=== PATIENT | male | born 1935 | race Caucasian/White ===

== ENCOUNTER → 2016-03-25 | Outpatient (CLI) | payer MEDICARE ==
--- NOTE | ~2016-03-25 | PR ---
[place], [place] PROGRESS NOTE NAME: JESSICA EASON [facility] #: [id number] UNIT #: [id number] ROOM: DOCTOR: GARY TOVAR DPM BIRTHDATE: [birth year] DOS: 03/25/2016 SUBJECTIVE: The patient seen for left foot distal ulceration on the first metatarsophalangeal joint and right foot lateral ulceration. They have been using the Puracol to both areas as directed. No new complaints. PHYSICAL EXAMINATION: It is noted that the right foot lateral ulcer is progressing very well. There is some callus tissue and debris, which was debrided through dermis with a 15 blade. At this time, once removed, there is a small open area of 0.1 x 0.1 x 0.1 cm. The left foot medial distal ulcer is progressing well also, is 1.2 x 2.3 x 0.3 cm. Callus tissue and debris was debrided through dermis with a 15 blade. The patient tolerated these procedures well, no signs of complications or infection noted at this point. IMPRESSION: Grade 3 diabetic ulceration, left foot, distal, progressing well and right foot lateral grade 1 ulceration, doing well. PLAN: 1. Evaluate. 2. Debridement was performed on both wounds as described above. We will apply Hyalomatrix to the left foot distal wound with a football bandage this is to stay on clean, dry, and intact for the entire week. The patient can continue using Puracol to the right foot lateral region and reappoint in 1 week for followup on this complaint. GARY TOVAR DPM CM:PNTRANS [phone] GARY TOVAR DPM 03/26/16 1253 interface
== END | disposition home or self-care (01) ==
LOC: WOUNDCARE 02:43
DX: E11.621 Type 2 diabetes mellitus with foot ulcer (principal); L97.522 Non-pressure chronic ulcer of other part of left foot with fat layer exposed; L97.511 Non-pressure chronic ulcer of other part of right foot limited to breakdown of skin; E11.69 Type 2 diabetes mellitus with other specified complication; M86.679 Other chronic osteomyelitis, unspecified ankle and foot; E11.51 Type 2 diabetes mellitus with diabetic peripheral angiopathy without gangrene; L84 Corns and callosities

== ENCOUNTER → 2016-04-01 | Outpatient (CLI) | payer MEDICARE ==
--- NOTE | ~2016-04-01 | PR ---
[place], [place] PROGRESS NOTE NAME: JESSICA EASON [facility] #: [id number] UNIT #: [id number] ROOM: DOCTOR: GARY TOVAR DPM BIRTHDATE: [birth year] DOS: 04/01/2016 SUBJECTIVE: The patient seen for bilateral lower extremity diabetic ulceration. The patient had the Hyalomatrix applied to the left foot ulceration. He has kept the bandage on, clean, dry, and intact. He has also been padding and protecting the right foot ulcer. PHYSICAL EXAMINATION: It is noted that there still Hyalomatrix in the wound, which is to be expected at this point in time on the left foot. No debridement was performed. There is evidence of new epithelial tissue formation and the wound seems to be progressing well with Hyalomatrix. Right foot has an eschar that is measuring 0.1 x 0.1 x 0.1. No open wound is noted at this time. Left foot distal wound when measured through the Hyalomatrix measures 1.2 cm x 2.2 cm x 0.3 cm. Again, no debridement of either wound was performed at this time. IMPRESSION: Grade 3 diabetic ulceration, left foot, and grade 0 diabetic ulceration of right foot, progressing well. PLAN: 1. Evaluate. 2. We will put a dry bulky football type bandage on the left foot to keep on clean and dry for a week. We will pad and protect the previous area of ulceration on the right foot. The patient will be reappointed in 1 week at the wound care center for followup of these complaints. He is to call if any problems arise in the meantime. GARY TOVAR DPM CM:PNTRANS [phone] GARY TOVAR DPM 04/02/16 0301 interface
== END ==
LOC: WOUNDCARE 03:29
DX: E11.621 Type 2 diabetes mellitus with foot ulcer (principal); L97.522 Non-pressure chronic ulcer of other part of left foot with fat layer exposed; L97.511 Non-pressure chronic ulcer of other part of right foot limited to breakdown of skin; E11.69 Type 2 diabetes mellitus with other specified complication; M86.679 Other chronic osteomyelitis, unspecified ankle and foot; E11.51 Type 2 diabetes mellitus with diabetic peripheral angiopathy without gangrene

== ENCOUNTER → 2016-06-03 | Outpatient (CLI) | payer MEDICARE ==
--- NOTE | ~2016-06-03 | PR ---
[place], [place] PROGRESS NOTE NAME: JESSICA EASON [facility] #: [id number] UNIT #: [id number] ROOM: DOCTOR: GARY TOVAR DPM BIRTHDATE: [birth year] DOS: 06/03/2016 SUBJECTIVE: The patient seen for left foot and right foot ulcers thus far and also right lower leg ulcer. They have been providing wound care with Puracol to all areas as directed, without any new complaints. PHYSICAL EXAMINATION: It is noted that right lower leg ulcer has completely healed. It is 100% epithelialized. Right lateral foot wound is very small and superficial currently measuring 0.1 x 0.1 x 0.1 with a scab covering this area and no open draining wound is noted. Left foot distal ulcer has also improved. It is measuring smaller at 0.8 cm x 1.7 cm x 0.3 cm. This area has moderate callus tissue and debris, which was debrided through dermis. The patient tolerated procedure well. Minimal bleeding was controlled via silver nitrate. No signs of infection or other complications were noted at this time. IMPRESSION: Healed right lower leg wound, virtually healed right lateral foot wound and left foot grade 3 diabetic ulceration, progressing well. PLAN: 1. Evaluate. 2. We will pad and protect the right lateral foot with a bordered foam. The left foot, we will continue to do Puracol and a dry bulky dressing every other day to this area. The patient will be seen for a followup at the Wound Care Center in 2 weeks for this complaint. GARY TOVAR DPM CM:PNTRANS [phone] GARY TOVAR DPM 06/03/16 2214 interface
== END ==
LOC: WOUNDCARE 03:14
DX: E11.621 Type 2 diabetes mellitus with foot ulcer (principal); L97.522 Non-pressure chronic ulcer of other part of left foot with fat layer exposed; E11.51 Type 2 diabetes mellitus with diabetic peripheral angiopathy without gangrene; E11.69 Type 2 diabetes mellitus with other specified complication; M86.672 Other chronic osteomyelitis, left ankle and foot

== ENCOUNTER → 2016-06-24 | Outpatient (CLI) | payer MEDICARE ==
--- NOTE | ~2016-06-24 | PR ---
[place], [place] PROGRESS NOTE NAME: JESSICA EASON [facility] #: [id number] UNIT #: [id number] ROOM: DOCTOR: GARY TOVAR DPM BIRTHDATE: [birth year] DOS: 06/24/2016 SUBJECTIVE: The patient is seen for bilateral lower extremity diabetic ulcerations. The patient is seen for both of these complaints. He has been using Puracol to the left foot ulcer and protecting the right foot ulcer. PHYSICAL EXAMINATION: It is noted that both are healing. Right foot is essentially healed. There is a bit of a scab that measures 0.2 x 0.2 x 0.1. The left foot distal ulcer is greatly improved. It is now only measuring 1.1 x 1.7 x 0.3 cm. The left foot ulcer has a periphery of devitalized tissue callus which was debrided through to dermis. The patient tolerated procedure well. No new complaints at this point in time. IMPRESSION: Grade 0 diabetic ulceration, right foot, essentially healed. Grade 3 diabetic ulceration, left foot, almost healed and progressing well. PLAN: 1. Evaluate. 2. Debridement was performed as described. The patient will continue to use the Puracol to the base of the wound and pad and protect the right foot. The patient will be seen in 2 weeks for followup of this complaint. GARY TOVAR DPM CM:PNTRANS [phone] GARY TOVAR DPM 06/24/16 2349 interface
== END ==
LOC: WOUNDCARE 04:26
DX: E11.621 Type 2 diabetes mellitus with foot ulcer (principal); L97.522 Non-pressure chronic ulcer of other part of left foot with fat layer exposed; E11.51 Type 2 diabetes mellitus with diabetic peripheral angiopathy without gangrene; E11.69 Type 2 diabetes mellitus with other specified complication; M86.672 Other chronic osteomyelitis, left ankle and foot

== ENCOUNTER → 2016-07-15 | Outpatient (CLI) | payer MEDICARE ==
--- NOTE | ~2016-07-15 | PR ---
[place], [place] PROGRESS NOTE NAME: JESSICA EASON [facility] #: [id number] UNIT #: [id number] ROOM: DOCTOR: GARY TOVAR DPM BIRTHDATE: [birth year] DOS: 07/15/2016 SUBJECTIVE: This is an established patient seen for bilateral lower extremity diabetic wounds. The patient has not been seen in the Wound Care Center for close to a month. He has been in and out of the hospital. Apparently, he was at [facility] where family notes that proper wound care may not have been given. He presents today for followup of both right and left foot wounds. PHYSICAL EXAMINATION: Today, both wounds appear to have deteriorated since the last visit. The measurements are larger. Left foot distal wound is 0.4 x 0.4 x 0.1. Right foot lateral wound is 1.3 x 2.1 x 0.4. Both of these areas were debrided with 15 blade through subcutaneous to remove devitalized slough, debris and devitalized tissue. Both areas are erythematous and have what appears to be possible early cellulitis. No drainage or odor coming from the site. Skin temperature is warm, but not hot to touch. Again, the patient has no systemic symptoms of sepsis at this time. IMPRESSION: Grade 3 diabetic ulceration, left foot as well as grade 1 diabetic ulceration, right foot, deteriorated since last visit. PLAN: 1. Evaluate. 2. Debridement was performed. Culture and sensitivity was obtained. Doxycycline was written for the patient 1 tablet p.o. b.i.d. The patient will use Puracol Ag to the area every other day. I would like to see the patient back in 1 week for followup of this complaint. GARY TOVAR DPM CM:PNJOSH [id number] GARY TOVAR DPM 07/16/16 0539 interface
== END ==
LOC: WOUNDCARE 03:48
DX: E11.621 Type 2 diabetes mellitus with foot ulcer (principal); L97.511 Non-pressure chronic ulcer of other part of right foot limited to breakdown of skin; L97.522 Non-pressure chronic ulcer of other part of left foot with fat layer exposed; E11.69 Type 2 diabetes mellitus with other specified complication; M86.679 Other chronic osteomyelitis, unspecified ankle and foot; E11.51 Type 2 diabetes mellitus with diabetic peripheral angiopathy without gangrene

== ENCOUNTER → 2016-07-29 | Outpatient (CLI) | payer MEDICARE ==
--- NOTE | ~2016-07-29 | PR ---
[place], [place] PROGRESS NOTE NAME: JESSICA EASON [facility] #: [id number] UNIT #: [id number] ROOM: DOCTOR: GARY TOVAR DPM BIRTHDATE: [birth year] DOS: 07/29/2016 SUBJECTIVE: This is an established patient seen for followup of bilateral lower extremity diabetic ulcerations. The patient has been performing wound care as directed and has no new complaints. PHYSICAL EXAMINATION: It is noted that the left foot distal ulceration is improved. It currently measures 1.2 cm x 2 cm x 0.1 cm. Callus tissue, debris and devitalized tissue was debrided through to subQ with minimal bleeding controlled with pressure and silver nitrate. No signs of infection noted in this region at this time. Right foot lateral ulceration is slough covered. Once this was removed, a 0.1 x 0.1 x 0.1 ulcer is still present. There is some increased edema and what looks to be early cellulitis in the lower extremity. We did get a culture back and the bacteria was susceptible to doxycycline. I will start him on doxycycline for this complaint. IMPRESSION: Bilateral lower extremity diabetic ulcerations improving, but early signs of cellulitis on the right foot. PLAN: 1. Evaluate. 2. Debridement was performed as described above. We will start the patient on doxycycline and see the patient back next week for followup of these complaints. GARY TOVAR DPM CM:ADRIANO [phone] GARY TOVAR DPM 07/30/16 0354 interface
== END ==
LOC: WOUNDCARE 01:24
DX: E11.621 Type 2 diabetes mellitus with foot ulcer (principal); L97.522 Non-pressure chronic ulcer of other part of left foot with fat layer exposed; E11.51 Type 2 diabetes mellitus with diabetic peripheral angiopathy without gangrene; E11.69 Type 2 diabetes mellitus with other specified complication; M86.679 Other chronic osteomyelitis, unspecified ankle and foot

== ENCOUNTER → 2016-08-12 | Outpatient (CLI) | payer MEDICARE ==
--- NOTE | ~2016-08-12 | PR ---
[place], [place] PROGRESS NOTE NAME: JESSICA EASON [facility] #: [id number] UNIT #: [id number] ROOM: DOCTOR: GARY TOVAR DPM BIRTHDATE: [birth year] DOS: 08/12/2016 SUBJECTIVE: The patient was seen for followup of bilateral lower extremity foot wounds. The patient missed his appointment last week. He was not feeling well. PHYSICAL EXAMINATION: Today, he presents and it is noted that the right lateral foot wound is healed. The left distal foot wound seems to be progressing well. Wound currently measures 1.1 cm x 1.8 cm x 0.1 cm. Slough, debris and devitalized tissue was debrided through subcutaneous. Minimal bleeding was controlled via pressure. No signs of infection or other complications. Post-debridement measurements are 1 cm x 1.7 cm x 0.1 cm. IMPRESSION: Grade 3 diabetic ulceration, progressing slowly. PLAN: 1. Evaluate. 2. Debridement was performed. We will discontinue dressings on the right lateral foot. We will continue with the Puracol every other day to the left foot. 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 He was given an option to follow up with the other physician at the center, but he chose to go out and additional week, so I will see him in 4 weeks on the 09/12/2016. The patient is urged to call the Wound Care Center for a followup appointment or sooner if any problems should arise. GARY TOVAR DPM CM:PNTRANS [phone] GARY TOVAR DPM 08/13/16 0144 interface
== END ==
LOC: WOUNDCARE 03:27
DX: E11.621 Type 2 diabetes mellitus with foot ulcer (principal); L97.522 Non-pressure chronic ulcer of other part of left foot with fat layer exposed; M86.672 Other chronic osteomyelitis, left ankle and foot; E11.69 Type 2 diabetes mellitus with other specified complication; E11.51 Type 2 diabetes mellitus with diabetic peripheral angiopathy without gangrene